=== PATIENT | male | born 1995 | race Caucasian/White ===

== ENCOUNTER 2016-08-19 22:30 | Emergency (ER) | payer OTHER ==
[~2016-08-19] VITALS: Ht 177.8 cm; Wt 74.3 kg
[2016-08-20] MEDS ORDERED: KEFLEX500 MG PO (01:25)
[2016-08-20] MEDS ORDERED: NAPROSYN500 MG PO (01:25)
[2016-08-20 01:44] VITALS: BP 125/73
== END 2016-08-20 01:47 | disposition home or self-care (01) ==
LOC: EME 22:30
PROC: 3E0234Z Introduction of Serum, Toxoid and Vaccine into Muscle, Percutaneous Approach (ICD-10-PCS; principal; 2016-08-19)
DX: S61.439A Puncture wound without foreign body of unspecified hand, initial encounter (principal); W45.0XXA Nail entering through skin, initial encounter
CPT/HCPCS: 73130; 99281; 99284